=== PATIENT | male | born 1965 | race Caucasian/White ===

== ENCOUNTER 2018-01-15 09:18 | Day surgery (SDC) | payer SELFPAY ==
[~2018-01-15 09:18] MED LIST: Lactated Ringers 1,000 ML IV SCH
[2018-01-15] MEDS ORDERED: Propofol 200 MG/20 ML SDV ONE (10:33)
[2018-01-15] MEDS ORDERED: Lidocaine 2% 5 ML SDV ONE (10:33)
[2018-01-15] MEDS ORDERED: fentaNYL 100 MCG/2 ML SDV ONE (10:34)
[2018-01-15] MEDS ORDERED: Midazolam 1 MG/ML 2 ML SDV ONE (10:34)
--- NOTE | 2018-01-15 10:59 | PCM.PREANE ---
Preanesthetic Assessment - Anesthesia/Transfusion/Family Hx Anesthesia History: Prior Anesthesia Without Reaction Family History of Anesthesia Reaction: No Transfusion History: No Prior Transfusion(s) - Review of Systems General: No Symptoms Pulmonary: No Symptoms Cardiovascular: No Symptoms Neurological: No Symptoms Other: Reports: None - Physical Assessment NPO Status Date: 01/14/18 Height: 1.91 m Weight: 131.995 kg ASA Class: 2 Mental Status: Alert & Oriented x3 Airway Class: Mallampati = 1 Dentition: Reports: Edentulous ROM/Head Extension: Full Lungs: Clear to Auscultation, Normal Respiratory Effort Cardiovascular: Regular Rate, Regular Rhythm - Allergies Allergies/Adverse Reactions: Allergies Allergy/AdvReac Type Severity Reaction Status Date / Time No Known Allergies Allergy Verified 01/12/18 10:53 - Anesthesia Plan Pre-Op Medication Ordered: None - Acknowledgements Anesthesia Type Planned: MAC Pt an Appropriate Candidate for the Planned Anesthesia: Yes Alternatives and Risks of Anesthesia Discussed w Pt/Guardian: Yes Pt/Guardian Understands and Agrees with Anesthesia Plan: Yes PreAnesthesia Questionnaire Other HEENT History: no teeth Gastrointestinal History: Reports: GERD Endocrine/Metabolic History: Reports: Obesity/BMI 30+ - Past Surgical History Head Surgeries/Procedures: Reports: None GI Surgical History: Reports: Other (See Below) Other GI Surgeries/Procedures: umbilical surgery as an infant - SUBSTANCE USE Smoking Status *Q: Current Every Day Smoker Tobacco Use Within Last Twelve Months: Cigarettes Recreational Drug Use History: No - HOME MEDS Home Medications: Home Meds Calcium Carbonate [Tums] 1 tab.chew CHEW ASDIRECTED PRN 01/12/18 [History] - CURRENT (IN HOUSE) MEDS Current Meds: Current Medications Lactated Ringer's (Ringers, Lactated) 1,000 mls @ 125 mls/hr IV ASDIRECTED B[place]LEY Discontinued Medications Fentanyl (Sublimaze) Confirm Administered Dose 100 mcg .ROUTE .STK-MED ONE Stop: 01/15/18 10:35 Lidocaine (Xylocaine-Mpf 2%) Confirm Administered Dose 5 ml .ROUTE .STK-MED ONE Stop: 01/15/18 10:34 Midazolam HCl (Versed 1 Mg/Ml) Confirm Administered Dose 2 mg .ROUTE .STK-MED ONE Stop: 01/15/18 10:35 Propofol (Diprivan 20 Ml) Confirm Administered Dose 400 mg .ROUTE .STK-MED ONE Stop: 01/15/18 10:34
--- NOTE | 2018-01-15 12:53 | PCM.OPNOTE ---
- General Post-Op/Procedure Note Date of Surgery/Procedure: 01/15/18 Operative Procedure(s): egd w bx; and colonoscopy Findings: see dict [id number] Pre Op Diagnosis: black tarry stool/abd pain Post-Op Diagnosis: Same Anesthesia Technique: Moderate Sedation Primary Surgeon: Rashel Goodman Pathology: egd bx Complications: None Condition: Good
--- NOTE | 2018-01-15 13:01 | PCM.POSTAN ---
POST ANESTHESIA ASSESSMENT - MENTAL STATUS Mental Status: Alert, Oriented - RESPIRATORY Respiratory Status: Respiratory Rate WNL, Airway Patent, O2 Saturation Stable - CARDIOVASCULAR CV Status: Pulse Rate WNL, Blood Pressure Stable - GASTROINTESTINAL GI Status: No Symptoms - POST OP HYDRATION Hydration Status: Adequate & Stable
--- NOTE | 2018-01-15 13:01 | PCM48HPAN ---
Post Anesthesia Note - EVALUATION WITHIN 48HRS OF ANESTHETIC Vital Signs in Normal Range: Yes Patient Participated in Evaluation: Yes Respiratory Function Stable: Yes Airway Patent: Yes Cardiovascular Function Stable: Yes Hydration Status Stable: Yes Pain Control Satisfactory: Yes Nausea and Vomiting Control Satisfactory: Yes Mental Status Recovered: Yes Resp Rate: 16
--- NOTE | 2018-01-15 20:21 | OR ---
SURGEON: Rashel Goodman MD DATE OF PROCEDURE: 01/15/2018 PREOPERATIVE DIAGNOSES: Black tarry stool and abdominal pain. POSTOPERATIVE DIAGNOSES: Esophagogastroduodenoscopy: Acid reflux. Colonoscopy: Hemorrhoids. PROCEDURES PERFORMED: Esophagogastroduodenoscopy with biopsy, and colonoscopy. PROCEDURE IN DETAIL: EGD: The patient was taken to the endoscopy room, and with the [employer], Diprivan was administered. A well-lubricated EGD scope was gently inserted through the oropharynx, down the esophagus, passing through the gastroesophageal junction, into the stomach. The mucosa was examined upon the passage. Any etiology will be noted. Once in the stomach, we continued to advance to the distal antrum, passed through the pylorus into the second portion of the duodenum. Again, the mucosa was examined for any abnormality and etiology. The scope was then retrieved back to the stomach and then retroflexed to look at the fundus of the stomach. If a biopsy was indicated, we will biopsy the antrum, body, and gastroesophageal junction. The air will be sucked out while the scope is retrieved to reduce the patient's discomfort. The patient tolerated the procedure well. There were no intraoperative complications. Dr. Goodman was present through the whole procedure. Prior to surgery, a time-out had been called, the patient identified, procedure identified and antibiotic administered. Colonoscopy procedure: The patient was taken to the endoscopy room. A time out was called, patient identified, and procedure identified. Diprivan was then administrated. Patient went from awake to sleep, hearing doctor talking or door closing is normal. Perineum inspection and digital examination were then performed. A well- lubricated colonoscope was gently inserted through the rectum, advanced past the rectosigmoid junction, the descending colon, splenic flexure, transverse colon, hepatic flexure, ascending colon, arrived to the cecum. Cecum was identified as dictated in the finding. Then the scope was carefully withdrawn while attention was paid to the mucosal surface for any abnormality. Air will be sucked out during the scope withdrawal. At the rectum, retroflexed to examine any rectal diseases, fistula or hemorrhoids. Patient tolerated procedure well. There were no intraoperative complications, and Dr. Goodman was present throughout the whole procedure. FINDINGS: EGD findings: 1. The patient is easily sedated with [employer] and Diprivan. The patient is soundly snoring. 2. Oropharynx and proximal esophagus are free of disease, and distal esophagus at GE junction at 40 shows moderate amount of salmon-colored change consistent with GERD. Stomach rugae is normal in appearance, and there is a little bit bile and several speckle of blood, but there is no veronique ulcer observed. Duodenum was grossly normal in appearance. Scope retrieved back to the stomach, retroflexed, looked at the fundus of stomach, there is no hiatal hernia. Biopsy done at antrum, body, GE junction at 40 and sucked out the air while scope pulling out. Colonoscopy findings: 1. The patient is easily sedated with [employer] and Diprivan. The patient is soundly snoring. 2. Bowel prep is left to be desirable. Large amount of liquid stool can compromise the study, despite using continuous drainage and irrigation. Sigmoid was quite redundant and required several maneuvers in the colon and cecum indicated by ileocecal fold, one-to-one indentation, and appendiceal orifice. Light emittance is not observed. The patient does not have diverticulosis, polyp, mass, growth, inflammation, stricture, ulceration, AV malformation, bleeding, none of those. The patient has moderate internal hemorrhoids. No external hemorrhoids. The patient would benefit from repeat colonoscopy in 10 years from today or if clinically indicated otherwise. BRAYAN / SARITHA /[id number]
--- NOTE | 2018-01-19 11:02 | OR ---
SURGEON: Rashel Goodman MD DATE OF PROCEDURE: 01/15/2018 ADDENDUM: On the picture, it shows like a polyp. It is not a polyp, it is a stool ball. The patient does not have a polyp. BRAYAN / SARITHA /[id number]
== END 2018-01-15 13:10 | disposition home or self-care (01) ==
LOC: MW.SDS 09:18
PROVIDERS: ATTEND Surgery
DX: K92.1 Melena (principal); K64.8 Other hemorrhoids; K29.50 Unspecified chronic gastritis without bleeding; K20.9 Esophagitis, unspecified; K21.9 Gastro-esophageal reflux disease without esophagitis; K59.00 Constipation, unspecified; E66.9 Obesity, unspecified; Z68.36 Body mass index [BMI] 36.0-36.9, adult; F17.210 Nicotine dependence, cigarettes, uncomplicated; Z79.899 Other long term (current) drug therapy; Z98.890 Other specified postprocedural states
CPT/HCPCS: 43239; 45378; J2250; J3010; J7120; 00813; 88305; 88312; J2704

== ENCOUNTER 2021-06-26 10:58 | Day surgery (SDC) | payer OTHER ==
[~2021-06-26 10:58] MED LIST changes: +Sodium Chloride 0.9% 0 ML ONE; +cefOXitin 1 GM Vial ONE; +fentaNYL 100 MCG/2 ML SDV ONE
[2021-06-26] MEDS ORDERED: Propofol 200 MG/20 ML SDV ONE (11:58)
[2021-06-26] MEDS ORDERED: Midazolam 1 MG/ML 2 ML SDV ONE (12:00)
--- NOTE | 2021-06-26 12:51 | PCM.PREANE ---
Preanesthetic Assessment - Procedure Proposed Procedure: EGD - Anesthesia/Transfusion/Family Hx Anesthesia History: Prior Anesthesia Without Reaction Family History of Anesthesia Reaction: No Transfusion History: No Prior Transfusion(s) - Review of Systems General: No Symptoms Pulmonary: No Symptoms (Smokes 1PPD, Heavy snoring and observed hesitations at night---likely undxd KWAN) Cardiovascular: No Symptoms Gastrointestinal: No Symptoms Neurological: No Symptoms Other: Reports: None - Physical Assessment NPO Status Date: 06/25/21 NPO Status Time: 18:30 Height: 6 ft 3 in Weight: 131.088 kg (Obesity) ASA Class: 2 Mental Status: Alert & Oriented x3 Airway Class: Mallampati = 3 Dentition: Reports: Edentulous Thyro-Mental Finger Breadths: 3 Mouth Opening Finger Breadths: 3 ROM/Head Extension: Full Lungs: Clear to Auscultation, Normal Respiratory Effort Cardiovascular: Regular Rate, Regular Rhythm - Lab Values: Laboratory Last Values SARS-CoV-2 RNA (BAKARI) NEGATIVE (NEGATIVE) 06/26/21 10:46 - Allergies Allergies/Adverse Reactions: Allergies Allergy/AdvReac Type Severity Reaction Status Date / Time No Known Allergies Allergy Verified 06/20/21 10:14 - Acknowledgements Anesthesia Type Planned: General Anesthesia Pt an Appropriate Candidate for the Planned Anesthesia: Yes Alternatives and Risks of Anesthesia Discussed w Pt/Guardian: Yes Pt/Guardian Understands and Agrees with Anesthesia Plan: Yes PreAnesthesia Questionnaire Other HEENT History: reading glasses Cardiovascular History: Reports: None Respiratory History: Reports: None Gastrointestinal History: Reports: GERD, Helicobacter Pylori Other Gastrointestinal History: epigastric pain Genitourinary History: Reports: None Musculoskeletal History: Reports: None Neurological History: Reports: None Psychiatric History: Reports: None Endocrine/Metabolic History: Reports: Obesity/BMI 30+ Hematologic History: Reports: None Immunologic History: Reports: None Oncologic (Cancer) History: Reports: None Dermatologic History: Reports: None - Past Surgical History Head Surgeries/Procedures: Reports: None HEENT Surgical History: Reports: None Cardiovascular Surgical History: Reports: None Respiratory Surgical History: Reports: None GI Surgical History: Reports: Colonoscopy, EGD, Other (See Below) Other GI Surgeries/Procedures: umbilical surgery as an Male Surgical History: Reports: None Endocrine Surgical History: Reports: None Neurological Surgical History: Reports: None Musculoskeletal Surgical History: Reports: None Oncologic Surgical History: Reports: None Dermatological Surgical History: Reports: None - SUBSTANCE USE Tobacco Use Status *Q: Current Every Day Tobacco User Tobacco Use Within Last Twelve Months: Cigarettes - HOME MEDS Home Medications: Home Meds Omeprazole 1 tab PO DAILY 06/20/21 [History] - CURRENT (IN HOUSE) MEDS Current Meds: Current Medications Lactated Ringer's (Ringers, Lactated) 1,000 mls @ 125 mls/hr IV ASDIRECTED [place] Discontinued Medications Cefoxitin Sodium (Cefoxitin 1 Gm Vial) Confirm Administered Dose 2 gm .ROUTE .STK-MED ONE Stop: 06/26/21 07:38 Fentanyl (Fentanyl 100 Mcg/2 Ml Sdv) Confirm Administered Dose 100 mcg .ROUTE .STK-MED ONE Stop: 06/26/21 08:40 Sodium Chloride (Normal Saline) Confirm Administered Dose 20 mls @ as directed .ROUTE .STK-MED ONE Stop: 06/26/21 07:38 Midazolam HCl (Midazolam 1 Mg/Ml 2 Ml Sdv) Confirm Administered Dose 2 mg .ROUTE .STK-MED ONE Stop: 06/26/21 12:01 Miscellaneous Medication (Phenylephrine Hcl In 0.9% Nacl 1 Mg/10 Ml Syringe) Confirm Administered Dose 1 mg .ROUTE .STK-MED ONE Stop: 06/26/21 08:09 Propofol (Propofol 200 Mg/20 Ml Sdv) Confirm Administered Dose 200 mg .ROUTE .STK-MED ONE Stop: 06/26/21 11:59
[2021-06-26] MEDS ORDERED: Benzocaine 20% Topical Spray UD ONE (13:45)
--- NOTE | 2021-06-26 14:11 | PCM.OPNOTE ---
- General Post-Op/Procedure Note Date of Surgery/Procedure: 06/26/21 Operative Procedure(s): EGD with biopsies Findings: Minimal gastritis dictation number [id number] Pre Op Diagnosis: Epigastric pain with some Nausea,. Heart burn Post-Op Diagnosis: Minimal gastritis Anesthesia Technique: [facility] [place] Primary Surgeon: Miguel Arzola Pathology: EGD biopsies Complications: None Condition: Good
--- NOTE | 2021-06-26 14:15 | PCM.POSTAN ---
POST ANESTHESIA ASSESSMENT - MENTAL STATUS Mental Status: Alert, Oriented - VITAL SIGNS Vital Signs: Last Vital Signs Temp 96.1 F L 06/26/21 12:28 Pulse 80 06/26/21 12:28 Resp 15 06/26/21 12:28 BP 112/71 06/26/21 12:28 Pulse Ox 95 06/26/21 12:28 - RESPIRATORY Respiratory Status: Respiratory Rate WNL, Airway Patent, O2 Saturation Stable - CARDIOVASCULAR CV Status: Pulse Rate WNL, Blood Pressure Stable - GASTROINTESTINAL GI Status: No Symptoms - PAIN Pain Score: 0 - POST OP HYDRATION Hydration Status: Adequate & Stable
--- NOTE | 2021-06-26 14:18 | PCM48HPAN ---
Post Anesthesia Note - EVALUATION WITHIN 48HRS OF ANESTHETIC Vital Signs in Normal Range: Yes Patient Participated in Evaluation: Yes Respiratory Function Stable: Yes Airway Patent: Yes Cardiovascular Function Stable: Yes Hydration Status Stable: Yes Pain Control Satisfactory: Yes Nausea and Vomiting Control Satisfactory: Yes Mental Status Recovered: Yes Vital Signs: Last Vital Signs Temp 96.1 F L 06/26/21 12:28 Pulse 80 06/26/21 14:16 Resp 17 06/26/21 14:16 BP 108/65 06/26/21 14:16 Pulse Ox 94 L 06/26/21 14:16 - COMMENTS/OBSERVATIONS Free Text/Narrative:: Pt doing well post-op. VSS. No apparent anesthetic complications. Dr. Michel Danielson
--- NOTE | 2021-06-26 20:41 | OR ---
SURGEON: CHERYL FREEMAN MD DATE OF PROCEDURE: 06/26/2021 PREOPERATIVE DIAGNOSES: 1. Epigastric pain with some nausea. 2. Heartburn. POSTOPERATIVE DIAGNOSIS: Some minimal gastritis. ANESTHESIA: With Anesthesiology. EXTENT OF THE EGD: To duodenum. PRIMARY SURGEON: Cheryl Freeman MD LIMITATIONS: None. REASON FOR PROCEDURE: Patient is a pleasant 56-year-old gentleman. He says he has some issues with some epigastric pain, occasionally having some nausea and dry heaving. He says he has been living off Tums the last couple of months. He says he has episodes like this every now and then for the last 7 to 8 years. He did have an EGD in the past. He was found to have H pylori. He was treated for this. He said that these symptoms are similar to back when he had H pylori. He denies any issues with swallowing. PROCEDURE IN DETAIL: Physical exam was performed. The major risks and benefits associated with the procedure were explained to the patient in detail. The patient verbalized understanding and agreement of the same. The patient was then connected to appropriate monitoring device and IV started. EKG, pulse, pulse oximetry, blood pressure, and capnography were monitored throughout the entire procedure. Continuous oxygen and sedation were provided by the anesthesiologist. After sedation was began, upper endoscope was advanced under direct visualization without any difficulty in the upper GI tract. The anatomy and mucosa of the esophagus, GE junction, stomach, pylorus, and duodenum were all inspected. The duodenum appeared normal. Scope was brought back to the stomach. Both retro and antegrade views of the stomach were done. The patient did have some minimal gastritis, more in the antrum area. Did do biopsies around the antrum and pylorus area to check for H pylori. Scope was brought up to the GE junction. GE junction was approximately 43 cm from the incisors. GE junction appeared intact with a good Z-line a good squamocolumnar junction. The scope was brought to the stomach. Stomach was deinsufflated. Scope was brought to the esophagus. Esophagus appeared normal. Scope was completely removed and the procedure was terminated. ENDOSCOPIC DIAGNOSIS: Minimal gastritis. RECOMMENDATIONS: The patient should follow up in clinic to go over the pathology. Did go over that he should continue taking his omeprazole as suggested in the clinic. DILIP / SARITHA /[id number]
== END 2021-06-26 14:40 | disposition home or self-care (01) ==
LOC: MW.SDS 10:58
PROVIDERS: ATTEND Surgery
DX: K29.50 Unspecified chronic gastritis without bleeding (principal); K29.00 Acute gastritis without bleeding; B96.81 Helicobacter pylori [H. pylori] as the cause of diseases classified elsewhere; F17.210 Nicotine dependence, cigarettes, uncomplicated; K59.00 Constipation, unspecified; E66.9 Obesity, unspecified; K21.9 Gastro-esophageal reflux disease without esophagitis; Z01.812 Encounter for preprocedural laboratory examination; Z20.822 Contact with and (suspected) exposure to COVID-19; Z86.19 Personal history of other infectious and parasitic diseases; Z98.890 Other specified postprocedural states
CPT/HCPCS: 43239; 87635; A9270; J2704; J7120; 00731; 88305; 88342; J0694; J2250; J2370; J3010; U0002